=== PATIENT | female | born 1950 | race American Indian/Alaskan Native ===

== ENCOUNTER 2017-08-29 10:41 | Inpatient (IN) | payer MEDICARE, OTHER ==
[2017-08-29 10:47] VITALS: BMI 22.7
--- NOTE | 2017-08-29 10:53 | ED PDOC ---
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 posterior back pain x 1 week with no recent traveling. Pt. stated that she has been coughing for the past 10 days, admits fatigue with vomiting after each coughing episode, unable to keep any fluid or solid down, stated that she feels chills but no objective fever, no night sweat, no numbness or tingling, no rash, no other medical or psychological complaints. Past Medical History - Provider Review Nursing Documentation Reviewed: Yes - Cardiac Hx Cardiac Disorders: Yes ([place] 2009) - Neurological HX Cerebrovascular Accident: Yes (1998) - Hematological/Oncological Hx Blood Transfusions: No Hx Blood Transfusion Reaction: No - Musculoskeletal/Rheumatological Hx Falls: No - Gastrointestinal Hx Gastrointestinal Disorders: Yes HX Swallowing Problems: Yes - Psychiatric Hx Substance Use: No - Surgical History Hx Cardiac Catheterization: Yes (2009) - Anesthesia Hx Anesthesia Reactions: Yes (?CARDIACVS RESP ARREST POST LAST EGD) Hx Malignant Hyperthermia: No - Suicidal Assessment Feels Threatened In Home Enviroment: No Family/Social History - Physician Review Nursing Documentation Reviewed: Yes Family/Social History: Unknown Family HX Smoking Status: Never Smoked Hx Alcohol Use: No Hx Substance Use: No Allergies/Home Meds Allergies/Adverse Reactions: Allergies No Known Allergies Allergy (Verified 08/29/17 10:47) Home Medications: Home Meds Medication Instructions Recorded Confirmed Cyanocobalamin [Vitamin B12 100 100 mcg PO DAILY 05/23/15 05/23/15 mcg Tab] Esomeprazole Magnesium [Nexium] 40 mg PO QAM 05/23/15 05/24/15 Folic Acid 1 mg PO DAILY 05/23/15 05/23/15 Valsartan/Hydrochlorothiazide 1 tab PO QAM 05/23/15 05/24/15 [Valsartan and Hydrochlorothiazide 12.5 mg-80 ] Review of Systems - Review of Systems Constitutional: Fatigue, Fevers Eyes: absent: Vision Changes ENT: absent: Hearing Changes Respiratory: Cough, Sputum. absent: SOB, Wheezing Cardiovascular: absent: Chest Pain Gastrointestinal: Nausea, Vomiting. absent: Abdominal Pain, Diarrhea Musculoskeletal: absent: Arthralgias, Back Pain Skin: absent: Rash, Pruritis Neurological: absent: Headache, Dizziness Psychiatric: absent: Anxiety, Depression, Suicidal Ideation Physical Exam Vital Signs Reviewed: Yes Vital Signs Temp Pulse Resp BP Pulse Ox 08/29/17 10:51 98.7 F 124 H 19 152/93 H 94 L 08/29/17 10:47 98.7 F 124 H 19 152/93 H 94 L Temperature: Afebrile Blood Pressure: Hypertensive Pulse: Tachycardic Respiratory Rate: Normal Appearance: Positive for: Well-Appearing, Non-Toxic, Comfortable Pain Distress: None Mental Status: Positive for: Alert and Oriented X 3 - Systems Exam Head: Present: Atraumatic, Normocephalic. No: Tenderness, Contusion, Swelling Pupils: Present: PERRL Extroacular Muscles: Present: EOMI Conjunctiva: Present: Normal Mouth: Present: Moist Mucous Membranes Pharnyx: No: ERYTHEMA, EXUDATE, TONSILS ENLARGED Nose (External): Present: Atraumatic. No: Abrasion, Contusion, Laceration Nose (Internal): Present: Normal Inspection, No Active Bleeding. No: Rhinorrhea , Septal Hematoma, Epistaxis Neck: Present: Normal Range of Motion, Trachea Midline. No: Meningeal Signs, MIDLINE TENDERNESS, Lymphadenopathy Respiratory/Chest: Present: Clear to Auscultation, Good Air Exchange, Rales (+ crackle/rale on the lower lobes). No: Respiratory Distress, Accessory Muscle Use, Wheezes, Decreased Breath Sounds, Retracting, Rhonchi, Tachypneic, Tender to Palpation Cardiovascular: Present: Regular Rate and Rhythm, Normal S1, S2. No: Murmurs Abdomen: No: Tenderness, Distention, Peritoneal Signs, Rebound, Guarding Back: Present: Normal Inspection Upper Extremity: Present: Normal Inspection. No: Cyanosis, Edema Lower Extremity: Present: Normal Inspection, NORMAL PULSES, Normal ROM, Capillary Refill < 2 s. No: Edema, Deformity Neurological: Present: GCS=15, CN II-XII Intact, Speech Normal, Motor Func Grossly Intact, Memory Normal Skin: Present: Warm, Dry, Normal Color. No: Rashes Psychiatric: Present: Alert, Oriented x 3, Normal Insight, Normal Concentration Medical Decision Making ED Course and Treatment: 08/29/17 11:01 Differential: Pneumonia vs. Pulmonary Embolus vs. Sepsis vs. dehydration -labs/dimer/vbg/blood cultures/ua -chest xray -ekg -IVF/protonix/zofran/solumedrol/duoneb -Oxygen 2L nasal cannula -Observe and reassess 08/29/17 11:21 -Lactic acid 2.2, tachycardic 120s, wbc is 12.0, code sepsis activated with IV rocephine and azithromycin ordered. 08/29/17 12:06 -Dimer 448, CTA added, afebrile with tachycardia, need to r/o PE 08/29/17 13:15 -EKG: Sinus Tachycardia @ 108 BPM with RBBB, no ST elevation or depression, T wave inversion on the lead V3, no previous ekg available for comparison -Chest xray: Minor right basilar atelectasis and or scarring. Significant dilatation of the esophagus again noted -Thoracic spine xray: No acute fractures however minor chronic anterior stature loss of several upper thoracic segments. Mild levoscoliosis. Mild multilevel degenerative spondylosis -CTA chest: No evidence of pulmonary embolus. Markedly dilated air-filled esophagus with layering food debris and liquid. Localized wall thickening of the distal esophagus. Rule out esophageal carcinoma. There appear to be some chronic scarring changes in the right upper and lower lobes with small nodular densities associated with 2 upper lobe foci. Followup the CT scan in 6 months recommended to assess stability. Small low-attenuation focus seen in the right lobe thyroid gland of uncertain etiology. Followup thyroid ultrasound recommended. See above discussion for additional details and findings -Labs show wbc 12.0 (IV rocephine and azithromycin with fluid ordered), BNP within normal limit, Dimer 448 (CTA added) -Lactic acid 2.2 -UA ordered and pending result. -I discussed the CTA chest result with the patient and suggest repeat chest after 6 months as per radiologist recommendation, there is ground grass patach opacity noted, clinically concerning and appears to be pneumonia. -Pt. will need admission for IV antibiotic as she is PO intolerance and sepsis. 08/29/17 13:19 -I spoke to Dr. Paiz about the case/labs/radiology result, agreed to admit to her service. -I spoke to Dr. Garcia about the case and he will put in the admission. Reassessment Condition: Re-examined - Critical Care Critical Care Minutes: 30 minutes Critical Care Time: Unstable Narrative Critical Care (Text): 08/29/17 11:23 Sepsis, tachycardia and hypoxic 94%, IVF and IV antibiotics. - Lab Interpretations Lab Results: 08/29/17 11:00 08/29/17 11:00 Lab Results 08/29/17 11:00: D-Dimer, Quantitative 448 H 08/29/17 11:00: WBC 12.0 H D, RBC 4.80, Hgb 13.3, Hct 40.6, MCV 84.6, MCH 27.7, MCHC 32.8, RDW 15.8 H, Plt Count 451 H, MPV 10.2, Gran % 76.2 H, Lymph % (Auto) 13.5 L, Will % (Auto) 9.8 H, Eos % (Auto) 0.3 L, Baso % (Auto) 0.2, Gran # 9.17 H, Lymph # (Auto) 1.6, Will # (Auto) 1.2 H, Eos # (Auto) 0.0, Baso # (Auto) 0.02 08/29/17 11:00: Sodium 142, Chloride 101, Potassium 3.8, Carbon Dioxide 24, Anion Gap 21 H, BUN 20, Creatinine 0.7, Est GFR ( Amer) > 60, Est GFR ( Non-Af Amer) > 60, Random Glucose 193 H, Calcium 10.0, Magnesium 1.8, Total Bilirubin 1.0, AST 22, ALT 22, Alkaline Phosphatase 158 H, NT-Pro-B Natriuret Pep 208, Total Protein 8.2, Albumin 4.2, Globulin 4.0, Albumin/Globulin Ratio 1.0 L, Lipase 92 08/29/17 11:00: pO2 117 H, VBG pH 7.44 H, VBG pCO2 40.0, VBG HCO3 27.2, VBG Total CO2 28.4 H, VBG O2 Sat (Calc) 99.5 H, VBG Base Excess 2.8 H, VBG Potassium 3.7, Sodium 140.0, Chloride 103.0, Glucose 209 H, Lactate 2.2 H, FiO2 21.0, Venous Blood Potassium 3.7 I have reviewed the lab results: Yes Interpretation: Abnormal lab values - RAD Interpretation Radiology Orders: 08/29/17 10:54 CHEST ONE VIEW [RAD] Stat 08/29/17 10:55 DORSAL (THORACIC) SPINE [RAD] Stat 08/29/17 11:57 ANGIO CHEST PE PROTOCOL [CT] Stat Chest xray: PROCEDURE: CHEST RADIOGRAPH, 1 VIEW HISTORY: Cough fever and fatigue. COMPARISON: Correlation with concurrent CTA chest and prior CT scan of the chest 05/28/2015 FINDINGS: Significant dilatation of the esophagus again noted which is most conspicuous in the upper mediastinum. Clinical correlation recommended. LUNGS: Minor right basilar atelectasis or scarring. PLEURA: No pneumothorax or pleural fluid seen. CARDIOVASCULAR: Heart size normal. OSSEOUS STRUCTURES: No significant abnormalities. VISUALIZED UPPER ABDOMEN: Normal. OTHER FINDINGS: None. IMPRESSION: Minor right basilar atelectasis and or scarring. Significant dilatation of the esophagus again noted -- Dorsal spine xray: Mid back pain COMPARISON: Correlation made with concurrent CTA chest which image the thoracic spine and 3 planes. FINDINGS: BONES: No acute compression fractures no retropulsed fragments. Chronic appearing anterior stature loss of several upper thoracic segments. There is mild of levoscoliosis. DISC SPACES: Mild multilevel degenerative spondylosis with varying degrees of disc space narrowing, endplate eburnation and small anterolateral as well as tiny posterior osteophyte formation. SOFT TISSUES: Normal. OTHER FINDINGS: None. IMPRESSION: No acute fractures however minor chronic anterior stature loss of several upper thoracic segments. Mild levoscoliosis. Mild multilevel degenerative spondylosis CTA Chest: PROCEDURE: CT Chest with contrast (Pulmonary Angiogram) HISTORY: Tachycardia,elevated dimer, cough ; rule out PE COMPARISON: Comparison made with CT chest 05/28/2015 TECHNIQUE: Contiguous helical/transaxial computed tomography images were obtained of the chest in the pulmonary arterial phase of enhancement. Coronal and sagittal reformatted images were created and reviewed. Intravenous contrast dose: 100 cc Omnipaque 350 Radiation dose: Total exam DLP = 266.04 mGy-cm. This CT exam was performed using one or more of the following dose reduction techniques: Automated exposure control, adjustment of the mA and/or kV according to patient size, and/or use of iterative reconstruction technique. FINDINGS: PULMONARY ARTERIES: The visualized pulmonary trunk, right and left main, lobar, segmental and proximal subsegmental branches of the pulmonary arteries are opacified with no definitive filling defects seen to suggest acute central pulmonary embolus. Pulmonary trunk measures approximately 2.3 cm AORTA: No acute findings. No thoracic aortic aneurysm. The at ascending thoracic aorta measures approximately 3.3 cm and descending thoracic aorta measures approximately 2.4 cm. LUNGS: There appears to be some localized atelectasis/ bronchiectasis in the superior segment right lower lobe. There are at 2 focal areas of patchy of patchy ground- glass opacities in the right upper lobe which probably represent chronic scarring changes ; the more anteriorly located focus present on the prior study. However note is made of an associated small approximately 3.9 mm elliptical shaped somewhat translucent appearing nodular opacity seen along the peripheral margin of this opacity (see axial series 4, image number 50). Similar similar translucent nodular opacity measuring 5.5 mm seen in the most posteriorly located focus. Findings may be postinflammatory sequela however follow-up CT scan in 6 months to assess the aforementioned 2 small nodular densities for stability PLEURAL SPACES: Unremarkable. No effusion or pneumothorax. HEART: Unremarkable. No cardiomegaly. No significant pericardial effusion. LYMPH NODES: No significant lymphadenopathy. BONES, CHEST WALL: Marked dilatation of the entire esophagus with layering food debris and liquid of likely due to chronic reflux. . Apparent small hiatal hernia with mild wall thickening of the distal esophagus that could be due to esophagitis however endoscopy followup recommended to exclude other intrinsic/invasive wall lesion including esophageal carcinoma. Note again made of deformity at of the right 6th rib with what appears represent some bridging with the 5th rib. Rule out old posttraumatic sequela versus is congenital/developmental abnormality. . Minor chronic anterior stature loss of few upper/ mid thoracic segments. There are no acute compression fractures. There is mild levoscoliosis. Small space curvilinear calcification along the posterior cyst T6-T7 disc space could represent calcification of the posterior longitudinal ligament or calcification of the posterior annulus results in mild compressive effects on the ventral surface of the thecal sac and spinal cord. Note again made of OTHER FINDINGS: There is a somewhat rounded/elliptical shaped low-attenuation focus posterior cortex upper/ midpole left kidney consistent with cyst that measures approximately 2.1 cm in greatest dimension. Small approximately 4.8 mm rounded low-attenuation focus right lobe thyroid gland of uncertain etiology. Recommend followup thyroid ultrasound. IMPRESSION: No evidence of pulmonary embolus. Markedly dilated air-filled esophagus with layering food debris and liquid. Localized wall thickening of the distal esophagus. Rule out esophageal carcinoma. There appear to be some chronic scarring changes in the right upper and lower lobes with small nodular densities associated with 2 upper lobe foci. Followup the CT scan in 6 months recommended to assess stability. Small low-attenuation focus seen in the right lobe thyroid gland of uncertain etiology. Followup thyroid ultrasound recommended. 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 - Medication Orders Current Medication Orders: Sodium Chloride (Sodium Chloride 0.9%) 1,000 mls @ 1,000 mls/hr IV .Q1H KAREN Last Admin: 08/29/17 12:28 Dose: 1,000 mls/hr eMAR Start Stop Document 08/29/17 12:28 OCS (Rec: 08/29/17 12:28 OCS [id number]) Intravenous Solution Start Date 08/29/17 Start Time 12:28 End Date 08/29/17 End time 13:28 Total Infusion Time 60 Discontinued Medications Albuterol/Ipratropium (Duoneb 3 Mg/0.5 Mg (3 Ml) Ud) 3 ml IH STAT STA Stop: 08/29/17 11:31 Last Admin: 08/29/17 12:26 Dose: 3 ml Albuterol/Ipratropium (Duoneb 3 Mg/0.5 Mg (3 Ml) Ud) 3 ml IH STAT STA Stop: 08/29/17 11:32 Last Admin: 08/29/17 12:27 Dose: 3 ml Sodium Chloride (Sodium Chloride 0.9%) 1,000 mls @ 100 mls/hr IV .Q10H KAREN Last Admin: 08/29/17 11:30 Dose: 100 mls/hr eMAR Start Stop Document 08/29/17 11:30 OCS (Rec: 08/29/17 11:30 OCS [id number]) Intravenous Solution Start Date 08/29/17 Start Time 11:30 Ceftriaxone Sodium (Rocephin 1 Gram Ivpb) 1 gm in 100 mls @ 200 mls/hr IVPB STAT STA PRN Reason: Protocol Stop: 08/29/17 11:47 Last Admin: 08/29/17 11:30 Dose: 200 mls/hr eMAR Start Stop Document 08/29/17 11:30 OCS (Rec: 08/29/17 11:31 OCS [id number]) Intravenous Solution Start Date 08/29/17 Start Time 11:31 End Date 08/29/17 End time 12:01 Total Infusion Time 30 Azithromycin (Zithromax 500mg In Ns) 500 mg in 250 mls @ 167 mls/hr IVPB STAT STA PRN Reason: Protocol Stop: 08/29/17 12:47 Last Admin: 08/29/17 12:27 Dose: 167 mls/hr eMAR Start Stop Document 08/29/17 12:27 OCS (Rec: 08/29/17 12:28 OCS [id number]) Intravenous Solution Start Date 08/29/17 Start Time 12:27 End Date 08/29/17 End time 13:57 Total Infusion Time 90 Methylprednisolone (Solu-Medrol) 125 mg IVP STAT STA Stop: 08/29/17 11:32 Last Admin: 08/29/17 12:26 Dose: 125 mg IVP Administration Document 08/29/17 12:26 OCS (Rec: 08/29/17 12:26 OCS [id number]) Charges for Administration # of IVP Administrations 1 Ondansetron HCl (Zofran Inj) 4 mg IVP STAT STA Stop: 08/29/17 10:55 Last Admin: 08/29/17 11:31 Dose: 4 mg IVP Administration Document 08/29/17 11:31 OCS (Rec: 08/29/17 11:31 OCS [id number]) Charges for Administration # of IVP Administrations 1 Pantoprazole Sodium (Protonix Inj) 40 mg IVP STAT STA Stop: 08/29/17 10:55 Last Admin: 08/29/17 11:31 Dose: 40 mg IVP Administration Document 08/29/17 11:31 OCS (Rec: 08/29/17 11:31 OCS [id number]) Charges for Administration # of IVP Administrations 1 - PA / NUTRITION SERVICES ASSISTANT / Resident Statement / has reviewed & agrees with the documentation as recorded. Disposition/Present on Arrival - Present on Arrival Any Indicators Present on Arrival: Yes History of DVT/PE: No History of Uncontrolled Diabetes: No Urinary Catheter: No History of Decub. Ulcer: No History Surgical Site Infection Following: None - Disposition Have Diagnosis and Disposition been Completed?: Yes Diagnosis: Sepsis, Pneumonia Disposition: HOSPITALIZED Disposition Time: 11:25 Patient Plan: Admission, Telemetry Patient Problems: Current Active Problems Problem Status Onset Pneumonia Acute Sepsis Acute Condition: STABLE Discharge Instructions (ExitCare): Sepsis (ED) Referrals: Evonne Banks DO [Primary Care Provider] - Follow up with primary
[2017-08-29] MEDS ORDERED: Sodium Chloride 0.9% 1,000 ML IV SCH ×2 (11:00→11:45)
[2017-08-29 11:12] LABS: VENOUS BLOOD GAS BASE EXCESS 2.8 mmol/L (0.0-2.0); VENOUS BLOOD GAS PO2 117 mm/Hg (30-55); VENOUS BLOOD PH 7.44 (7.32-7.43)
[2017-08-29 11:14] LABS: BASO # 0.02 K/mm3 (0.0-2.0); BASO % 0.2 % (0.0-3.0); EOS % 0.3 % (1.5-5.0); GRAN # 9.17 (1.4-6.5); GRAN % 76.2 % (50.0-68.0); HEMOGLOBIN 13.3 g/dL (12.0-16.0); LYMPH # 1.6 (1.2-3.4); LYMPH % 13.5 % (22.0-35.0); MEAN CELL VOLUME 84.6 fl (80.0-105.0); MEAN CORPUSCULAR HEMOGLOBIN 27.7 pg (25.0-35.0); MEAN CORPUSCULAR HGB CONC 32.8 g/dl (31.0-37.0); MEAN PLATELET VOLUME 10.2 fl (7.0-11.0); MONO # 1.2 (0.1-0.6); MONO % 9.8 % (1.0-6.0); RBC 4.8 10^6/uL (3.5-6.1); RED CELL DISTRIBUTION WIDTH 15.8 % (11.5-14.5)
[2017-08-29] MEDS ORDERED: Azithromycin 500MG/NS 250ml 500 MG/250 ML BAG IVPB STA (11:18)
[2017-08-29] MEDS ORDERED: cefTRIAXone 1 gm 1 GM/100 ML BAG IVPB STA (11:18)
[2017-08-29 11:27] LABS: ALBUMIN 4.2 g/dL (3.0-4.8); GFR AFRICAN-AMERICAN > 60; GFR NON-AFRICAN AMERICAN > 60; LIPASE 92 U/L (23-300)
[2017-08-29] MEDS ORDERED: Albuterol-Ipratrop 3 mg / 0.5 (3 ml) UD IH STA ×2 (11:30→11:31)
[2017-08-29 11:34] LABS: ALT/SGPT 22 U/L (7-56); AST/SGOT 22 U/L (14-36); BLOOD UREA NITROGEN 20 mg/dL (7-21)
[2017-08-29 11:35] LABS: B-TYPE NATRIURETIC PEPTIDE 208 pg/mL (0-450)
[2017-08-29] MEDS ORDERED: Iohexol 350 MG/100 ML VIAL ONE (12:03)
--- NOTE | 2017-08-29 12:24 | RAD ---
PROCEDURE: CHEST RADIOGRAPH, 1 VIEW HISTORY: Cough fever and fatigue. COMPARISON: Correlation with concurrent CTA chest and prior CT scan of the chest 05/28/2015 FINDINGS: Significant dilatation of the esophagus again noted which is most conspicuous in the upper mediastinum. Clinical correlation recommended. LUNGS: Minor right basilar atelectasis or scarring. PLEURA: No pneumothorax or pleural fluid seen. CARDIOVASCULAR: Heart size normal. OSSEOUS STRUCTURES: No significant abnormalities. VISUALIZED UPPER ABDOMEN: Normal. OTHER FINDINGS: None. IMPRESSION: Minor right basilar atelectasis and or scarring. Significant dilatation of the esophagus again noted
--- NOTE | 2017-08-29 12:27 | RAD ---
HISTORY: Mid back pain COMPARISON: Correlation made with concurrent CTA chest which image the thoracic spine and 3 planes. FINDINGS: BONES: No acute compression fractures no retropulsed fragments. Chronic appearing anterior stature loss of several upper thoracic segments. There is mild of levoscoliosis. DISC SPACES: Mild multilevel degenerative spondylosis with varying degrees of disc space narrowing, endplate eburnation and small anterolateral as well as tiny posterior osteophyte formation. SOFT TISSUES: Normal. OTHER FINDINGS: None. IMPRESSION: No acute fractures however minor chronic anterior stature loss of several upper thoracic segments. Mild levoscoliosis. Mild multilevel degenerative spondylosis
--- NOTE | 2017-08-29 13:11 | CT ---
PROCEDURE: CT Chest with contrast (Pulmonary Angiogram) HISTORY: Tachycardia,elevated dimer, cough ; rule out PE COMPARISON: Comparison made with CT chest 05/28/2015 TECHNIQUE: Contiguous helical/transaxial computed tomography images were obtained of the chest in the pulmonary arterial phase of enhancement. Coronal and sagittal reformatted images were created and reviewed. Intravenous contrast dose: 100 cc Omnipaque 350 Radiation dose: Total exam DLP = 266.04 mGy-cm. This CT exam was performed using one or more of the following dose reduction techniques: Automated exposure control, adjustment of the mA and/or kV according to patient size, and/or use of iterative reconstruction technique. FINDINGS: PULMONARY ARTERIES: The visualized pulmonary trunk, right and left main, lobar, segmental and proximal subsegmental branches of the pulmonary arteries are opacified with no definitive filling defects seen to suggest acute central pulmonary embolus. Pulmonary trunk measures approximately 2.3 cm AORTA: No acute findings. No thoracic aortic aneurysm. The at ascending thoracic aorta measures approximately 3.3 cm and descending thoracic aorta measures approximately 2.4 cm. LUNGS: There appears to be some localized atelectasis/ bronchiectasis in the superior segment right lower lobe. There are at 2 focal areas of patchy of patchy ground-glass opacities in the right upper lobe which probably represent chronic scarring changes ; the more anteriorly located focus present on the prior study. However note is made of an associated small approximately 3.9 mm elliptical shaped somewhat translucent appearing nodular opacity seen along the peripheral margin of this opacity (see axial series 4, image number 50). Similar similar translucent nodular opacity measuring 5.5 mm seen in the most posteriorly located focus. Findings may be postinflammatory sequela however follow-up CT scan in 6 months to assess the aforementioned 2 small nodular densities for stability PLEURAL SPACES: Unremarkable. No effusion or pneumothorax. HEART: Unremarkable. No cardiomegaly. No significant pericardial effusion. LYMPH NODES: No significant lymphadenopathy. BONES, CHEST WALL: Marked dilatation of the entire esophagus with layering food debris and liquid of likely due to chronic reflux. . Apparent small hiatal hernia with mild wall thickening of the distal esophagus that could be due to esophagitis however endoscopy followup recommended to exclude other intrinsic/invasive wall lesion including esophageal carcinoma. Note again made of deformity at of the right 6th rib with what appears represent some bridging with the 5th rib. Rule out old posttraumatic sequela versus is congenital/developmental abnormality. . Minor chronic anterior stature loss of few upper/ mid thoracic segments. There are no acute compression fractures. There is mild levoscoliosis. Small space curvilinear calcification along the posterior cyst T6-T7 disc space could represent calcification of the posterior longitudinal ligament or calcification of the posterior annulus results in mild compressive effects on the ventral surface of the thecal sac and spinal cord. Note again made of OTHER FINDINGS: There is a somewhat rounded/elliptical shaped low-attenuation focus posterior cortex upper/ midpole left kidney consistent with cyst that measures approximately 2.1 cm in greatest dimension. Small approximately 4.8 mm rounded low-attenuation focus right lobe thyroid gland of uncertain etiology. Recommend followup thyroid ultrasound. IMPRESSION: No evidence of pulmonary embolus. Markedly dilated air-filled esophagus with layering food debris and liquid. Localized wall thickening of the distal esophagus. Rule out esophageal carcinoma. There appear to be some chronic scarring changes in the right upper and lower lobes with small nodular densities associated with 2 upper lobe foci. Followup the CT scan in 6 months recommended to assess stability. Small low-attenuation focus seen in the right lobe thyroid gland of uncertain etiology. Followup thyroid ultrasound recommended. See above discussion for additional details and findings
[2017-08-29] MEDS ORDERED: Albuterol-Ipratrop 3 mg / 0.5 (3 ml) UD IH PRN (14:13)
[2017-08-29] MEDS: Dextrose 5%/0.45% NS 1,000 ML IV SCH (15:14)
[2017-08-29 15:58] LABS: VENOUS BLOOD GAS BASE EXCESS 3.2 mmol/L (0.0-2.0); VENOUS BLOOD GAS PO2 72 mm/Hg (30-55); VENOUS BLOOD PH 7.43 (7.32-7.43)
--- NOTE | 2017-08-29 16:57 | CARD ---
APPROVED REPORT EKG Measurement Heart [id number] <Conclusion> Sinus tachycardia Right bundle branch block Left anterior fascicular block Bifascicular block Voltage criteria for left ventricular hypertrophy Cannot rule out Septal infarct, age undetermined Abnormal ECG
[2017-08-29 18:43] LABS: URINE BILIRUBIN NEGATIVE (NEGATIVE); URINE BLOOD TRACE-LYSED (NEGATIVE); URINE GLUCOSE (UA) 100 mg/dL (NEGATIVE); URINE LEUKOCYTE ESTERASE NEGATIVE Leu/uL (NEGATIVE); URINE PROTEIN 30 mg/dL (<30 mg/dL)
[2017-08-29 18:50] LABS: URINE APPEARANCE SL CLOUDY (CLEAR); URINE COLOR YELLOW (YELLOW)
[2017-08-29] MEDS: Albuterol-Ipratrop 3 mg / 0.5 (3 ml) UD IH SCH ×2 (18:51→19:13)
[2017-08-29 19:08] LABS: URINE RBC 0 - 2 /hpf (0-2); URINE WBC 0 - 2 /hpf (0-6)
[2017-08-29] MEDS ORDERED: Pneumococcal 23-Valent Vaccine IM ONE (21:25)
[2017-08-29] MEDS ORDERED: Cefepime 1gm in NS 100ml 1 GM/100 ML BAG IVPB SCH (22:00)
--- NOTE | 2017-08-29 23:56 | HP ---
HISTORY OF PRESENT ILLNESS: The patient is a 66-year-old, known to me from previous admission, came to emergency room because of generalized weakness, feeling weak, tired, nauseous, unable to hold food, has been having some cough and congestion, felt feverish at home, has generalized weakness, complaining of upper back pain, complained of intermittent vomiting. Denies any weakness and numbness. PAST MEDICAL HISTORY: Significant for: 1. Esophageal cancer. 2. History of NE in 2009. 3. History of CVA in 1998. 4. 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 she was initially diagnosed with achalasia at [facility]. 5. History of hypertension. 6. Motility disorder. ALLERGY: SHE IS NOT ALLERGIC TO ANY MEDICATIONS. MEDICATION AT HOME: She is on valsartan 80 mg daily, folic acid 1 mg daily, Nexium 40 mg daily and B12. SOCIAL HISTORY: Denies smoking, drinking or alcohol use. REVIEW OF SYSTEMS: Significant for discomfort, cough, congestion. PHYSICAL EXAMINATION: GENERAL: She is awake, alert, oriented, communicative. VITAL SIGNS: She is afebrile. Pulse 111, respirations 20, blood pressure 142/95. LUNGS: Bilateral fair airflow, few occasional rhonchi. HEART: S1 and S2 audible. ABDOMEN: Soft. Nontender. No rebound. No guarding. NEUROLOGICAL: The patient is awake, alert, oriented, and communicative. LABORATORY EXAM: WBC is 12, hemoglobin 13.3, hematocrit 40.6, platelets of 451. D-dimer 448. Chemistry: Sodium 142, potassium 3.8, chloride 101, CO2 24, BUN 20, creatinine 0.7, blood sugar of 193. LFTs are within normal limits. Alk phos is 158. CT scan of the chest was done that shows no evidence of pulmonary embolism, markedly dilated, air filled esophagus with lining of food debris and liquid, localized thickening of the distal esophagus. There are small nodular opacities in the upper and lower lobes. ASSESSMENT: 1. Esophageal cancer, probably aspiration pneumonia. 2. Hypertension. 3. Hyperglycemia. 4. Leukocytosis. PLAN: We will start the patient empirically on IV antibiotics. Start on nebulizer treatment. Keep her n.p.o. Give her PPI. Requested GI evaluation and ID evaluation. Marla Paiz MD [facility] # [id number]
[2017-08-30] MEDS: Albuterol-Ipratrop 3 mg / 0.5 (3 ml) UD IH SCH ×4 (01:36→19:15)
[2017-08-30 06:48] LABS: BASO # 0.01 K/mm3 (0.0-2.0); BASO % 0.1 % (0.0-3.0); GRAN # 8.13 (1.4-6.5); GRAN % 71.7 % (50.0-68.0); HEMOGLOBIN 11.4 g/dL (12.0-16.0); LYMPH # 1.8 (1.2-3.4); LYMPH % 15.4 % (22.0-35.0); MEAN CELL VOLUME 84.5 fl (80.0-105.0); MEAN CORPUSCULAR HEMOGLOBIN 26.8 pg (25.0-35.0); MEAN CORPUSCULAR HGB CONC 31.8 g/dl (31.0-37.0); MONO # 1.5 (0.1-0.6); MONO % 12.8 % (1.0-6.0); RBC 4.25 10^6/uL (3.5-6.1); RED CELL DISTRIBUTION WIDTH 15.8 % (11.5-14.5); WHITE BLOOD COUNT 11.3 10^3/ul (4.5-11.0)
[2017-08-30 07:17] LABS: FREE T4 1.59 ng/dL (0.78-2.19)
[2017-08-30 07:33] LABS: ALBUMIN 3.7 g/dL (3.0-4.8); ALT/SGPT 11 U/L (7-56); AST/SGOT 28 U/L (14-36); BLOOD UREA NITROGEN 14 mg/dL (7-21); CALCIUM 9.2 mg/dL (8.4-10.5); GFR AFRICAN-AMERICAN > 60; GFR NON-AFRICAN AMERICAN > 60
[2017-08-30] MEDS ORDERED: Potassium Chloride 20 mEq ER Tab PO ONE (10:31)
[2017-08-30] MEDS: MethylPREDNISolone 40 mg Vial IVP SCH (10:46)
[2017-08-30] MEDS: Dextrose 5%/0.45% NS 1,000 ML IV SCH ×2 (15:33→21:00)
[2017-08-30] MEDS: Cefepime 1gm in NS 100ml 1 GM/100 ML BAG IVPB SCH ×2 (15:33→22:30)
[2017-08-30] MEDS: Budesonide 0.5 mg/2 ml Inhal Susp UD IH SCH (19:15)
--- NOTE | 2017-08-30 20:17 | CON ---
DATE: 08/30/2017 LOCATION: Patient is seen in [facility], bed 2. CHIEF COMPLAINT: Cough times several days and shortness of breath times several days. HISTORY OF PRESENT ILLNESS: This is a 66-year-old female with a history of esophageal cancer, history of coronary artery disease, myocardial infarction in 2009, history of cerebrovascular accident in 1998, and hypertension, who was seen in the emergency room by Dr. Raimundo Garcia, on 08/29/2017, which was yesterday. Patient went to the emergency room complaining of coughing and fever and fatigue and stays in the emergency room. The patient also has esophageal stricture with esophageal malignancy and vitamin D deficiency. REVIEW OF SYSTEMS: Reveals no abdominal pain at this time, no chest pain. The patient did have complained of fevers and no headaches, no new back pain, no dysuria or frequency. Twelve-point review of systems is performed. PAST MEDICAL HISTORY: Significant for esophageal stricture, esophageal cancer, coronary artery disease, myocardial infarction in 2009, cerebrovascular accident in 1997, hypertension, and vitamin B deficiency. PAST SURGICAL HISTORY: Noncontributory except for a cardiac catheterization in 2009. Patient has also had chemotherapy and radiation in 2015. ALLERGIES: PATIENT HAS NO KNOWN ALLERGIES. MEDICATIONS: At home are reviewed and include valsartan and hydrochlorothiazide, folic acid, vitamin B12, and Protonix. PHYSICAL EXAMINATION: GENERAL: Patient is in bed, in no acute distress, answering questions. VITAL SIGNS: With a temperature of 98.7; heart rate of 99, it was up to 124; respiratory rate of 20; blood pressure is 138/90. Examination of the O2 saturation is 100%. HEENT: Unremarkable. NECK: Supple. LUNGS: Have decreased breath sounds. HEART: Normal S1, S2. ABDOMEN: Soft, nontender. No rebound, no guarding. LABORATORY EXAMINATION: Reveals a white count of 12,000, hemoglobin of 13, platelets of 451. Patient has a 76% granulocytosis. Coagulation is noted. D-dimer is elevated. Blood gases are noted. Chemistries reveal the patient has BUN of 20, creatinine of 0.7, alk phos is 158. Urinalysis is noted. Microbiology is pending. Patient had a CAT scan of the chest, which revealed bronchiectasis and patchy ground-glass opacities. Patient had a chest x-ray, showed atelectasis and scarring. ASSESSMENT AND PLAN: This is a 66-year-old female with esophageal cancer, had chemotherapy in the past, radiation, esophageal strictures, coronary artery disease, myocardial infarction, cerebrovascular accident, hypertension, vitamin B deficiency; admitted with tachycardia, cough, shortness of breath, and leukocytosis with white count of 12,000 with positive infiltrates in a CAT scan: 1. Sepsis with healthcare-associated pneumonia. Blood cultures, urine cultures, sputum cultures are pending. We will order a procalcitonin. Patient is started on cefepime and doxycycline. We will start the patient on doxycycline and cefepime pending panculture and procalcitonin results and we will make further recommendations upon the availability of initial results. Patient's creatinine is 0.7. We will change the cefepime to every 8 hour dosing. We will follow closely with you. Pending culture, procalcitonin. Dalton Menjivar MD
--- NOTE | 2017-08-30 22:12 | CP.PCM.PN ---
Subjective - Date & Time of Evaluation Date of Evaluation: 08/30/17 Time of Evaluation: 20:35 - Subjective Subjective: Pt has very poor veins ,needs iv access. Objective - Vital Signs/Intake and Output Vital Signs (last 24 hours): Temp Pulse Resp BP Pulse Ox 98.2 F 116 H 20 157/93 H 98 08/30/17 18:00 08/30/17 18:00 08/30/17 18:00 08/30/17 18:00 08/30/17 18:00 - Medications Medications: Current Medications Acetaminophen (Tylenol 325mg Tab) 650 mg PO Q6H PRN PRN Reason: Fever >100.4 F Albuterol/Ipratropium (Duoneb 3 Mg/0.5 Mg (3 Ml) Ud) 3 ml IH Q2H PRN PRN Reason: Shortness of Breath Last Admin: 08/30/17 09:42 Dose: 3 ml Albuterol/Ipratropium (Duoneb 3 Mg/0.5 Mg (3 Ml) Ud) 3 ml IH [id number] KAREN Last Admin: 08/30/17 19:15 Dose: 3 ml Budesonide (Pulmicort Respules) 0.5 mg IH BIDRESP KAREN Last Admin: 08/30/17 19:15 Dose: 0.5 mg Dextrose/Sodium Chloride (Dextrose 5%/0.45% Ns 1000 Ml) 1,000 mls @ 100 mls/hr IV .Q10H [facility] Last Admin: 08/30/17 15:33 Dose: 100 mls/hr Doxycycline Hyclate 100 mg/ (Sodium Chloride) 100 mls @ 100 mls/hr IVPB Q12 KAREN PRN Reason: Protocol Stop: 09/06/17 10:01 Last Admin: 08/30/17 21:33 Dose: 100 mls/hr Cefepime HCl (Maxipime 1gm) 1 gm in 100 mls @ 100 mls/hr IVPB Q8 KAREN PRN Reason: Protocol Stop: 09/05/17 14:01 Last Admin: 08/30/17 15:33 Dose: 100 mls/hr Methylprednisolone (Solu-Medrol) 40 mg IVP DAILY [facility] Last Admin: 08/30/17 10:46 Dose: 40 mg Ondansetron HCl (Zofran Inj) 4 mg IVP Q6H PRN PRN Reason: Nausea/Vomiting Pantoprazole Sodium (Protonix Inj) 40 mg IVP DAILY [facility]EN Last Admin: 08/30/17 10:46 Dose: 40 mg - Labs Labs: 08/30/17 06:30 08/30/17 06:30 - Constitutional Appears: No Acute Distress Assessment and Plan - Assessment and Plan (Free Text) Assessment: Poor venous access. Plan: Hep lock inserted in the L hand. # 24 angiocath used.
--- NOTE | 2017-08-30 22:36 | CON ---
DATE: 08/30/2017 PULMONARY CONSULTATION HISTORY OF PRESENT ILLNESS: The patient is a 66-year-old woman who came to the hospital after feeling short of breath for several weeks. She had no fever or chills. There was an occasional cough, which she described as congestion, generalized weakness ensued. PAST MEDICAL HISTORY: The patient has a past history of esophageal cancer. She had radiation therapy and chemotherapy for squamous cell carcinoma. She also has a history of myocardial infarction and cerebrovascular accident. She has hypertension. Her esophagus remains with difficulty swallowing. ALLERGIES: THERE ARE NO KNOWN ALLERGIES. HOME MEDICATIONS: Include valsartan and Nexium. FAMILY HISTORY: CAD, HTN SOCIAL HISTORY: The patient never smoked or used alcohol. REVIEW OF SYSTEMS: Negative other than from that described above, shortness of breath and cough. All other systems negative. PHYSICAL EXAMINATION: GENERAL: The patient is sitting in bed. She states that she is short of breath, but she looks relatively comfortable. VITAL SIGNS: Stable. She is afebrile, pulse is 90, respiratory rate 18, blood pressure 140/90, oxygen sat 96% on supplemental oxygen. HEENT: Normocephalic, atraumatic. PERRLA. EOMs full. Conjunctivae pink. NECK: Supple. No JVD. No lymphadenopathy. LUNGS: Good air flow, scattered wheezes throughout both lung landa, scattered rhonchi throughout both lung landa. No rales appreciated. ABDOMEN: Soft. Bowel sounds normoactive, without mass, guarding, rebound or organomegaly. EXTREMITIES: Reveal no clubbing, cyanosis or edema. There is no Homans' sign. NEUROLOGIC: Reveals a middle aged woman, in no acute distress, with no focal findings. SKIN: Dry; intact. LABORATORY DATA: White count is 12,000, hemoglobin 13, platelet count 451,000. D-dimer was elevated at 448. Eosinophils were 0. Blood gas done yesterday, pH 7.43, on 21%, pCO2 of 40, pO2 of 117, potassium 3.2, glucose 130. EKG, sinus tach, nonspecific ST-T wave changes. CT scan shows many abnormalities, the first of which is negative for pulmonary embolism. There are several areas of possible pneumonic infiltrate. There is also evidence of bronchiectasis, mainly at the lower lobe. There is scarring throughout. There are possibility of several nodules. There is no pleural effusion. Noted by the radiologist, there is a filled esophagus which perhaps may be leading to aspiration. CLINICAL IMPRESSION: 1. Respiratory insufficiency. 2. Acute bronchospasm. 3. Rule out aspiration. 4. Hypokalemia. 5. Esophageal cancer. 6. Status post radiation therapy and chemotherapy. PLAN: At this time, bronchodilators and corticosteroids are essential. We must see if this makes the patient improved. She will need broad-spectrum antibiotic coverage. Once stabilized, a swallowing test is essential to make sure that there is no aspiration syndrome, which one needs to consider strongly. The patient has no history of bronchospasm in the past. Etiology of this needs to be discerned, aspiration is a possible cause. The patient is being cared for by Dr. Banks and Dr. Paiz in the hospital. We will follow closely with you during the course of this hospitalization and decide on the need for further intervention as the workup continues. José Samuels MD MTDD
[2017-08-31] MEDS: Albuterol-Ipratrop 3 mg / 0.5 (3 ml) UD IH SCH ×4 (01:49→20:25)
[2017-08-31] MEDS: Dextrose 5%/0.45% NS 1,000 ML IV SCH ×3 (04:05→18:01)
[2017-08-31 05:26] LABS: ARTERIAL BLOOD GAS HCO3 29.2 mmol/L (21-28); ARTERIAL BLOOD GAS HEMOGLOBIN 10.9 g/dL (11.7-17.4); ARTERIAL BLOOD GAS O2 CAPACITY 15.3 mL/dl (16-24); ARTERIAL BLOOD GAS O2 CONTENT 15.3 ML/dl (15-23); ARTERIAL BLOOD GAS O2 SAT 99.9 % (95-98); ARTERIAL BLOOD GAS PCO2 41 mm/Hg (35-45); ARTERIAL BLOOD GAS PH 7.46 (7.35-7.45); ARTERIAL BLOOD GAS TCO2 30.5 mmol.L (22-28)
[2017-08-31] MEDS: Cefepime 1gm in NS 100ml 1 GM/100 ML BAG IVPB SCH ×3 (05:28→21:31)
[2017-08-31 06:34] LABS: HEMOGLOBIN 11.1 g/dL (12.0-16.0); MEAN CELL VOLUME 84.2 fl (80.0-105.0); MEAN CORPUSCULAR HEMOGLOBIN 26.6 pg (25.0-35.0); MEAN CORPUSCULAR HGB CONC 31.5 g/dl (31.0-37.0); RBC 4.18 10^6/uL (3.5-6.1); RED CELL DISTRIBUTION WIDTH 15.6 % (11.5-14.5); WHITE BLOOD COUNT 10.7 10^3/ul (4.5-11.0)
--- NOTE | 2017-08-31 06:40 | CON ---
DATE: This patient was seen and evaluated earlier. REASON FOR CONSULTATION: Dysphagia, history of esophageal cancer. HISTORY OF PRESENT ILLNESS: This is a 66-year-old patient with the past medical history of an achalasia cardia, squamous cell carcinoma, diagnosed in 2015, had status post radiation and chemo completed close to a year ago. Patient is being followed by Dr. Michael Goldstein, reel repairer. Patient had a last endoscopy done in 11/2016. Patient is due to have a followup endoscopy in November. Patient had a followup PET scan done, which as per the patient was negative. Presented to the hospital emergency room with the complaints of weakness, vomiting, cough, congestion. Patient stated the symptoms started about 10 days ago but symptoms are progressively getting worse, came to the ER, not able to keep any food or solid down. Patient also was complaining of chills. No complaints of any abdominal pain. PAST MEDICAL HISTORY: Other past medical history is significant for; 1. Esophageal cancer. 2. Gastric polyps. 3. History of coronary artery disease, status post SC in 2009. 4. Status post CVA. 5. Hypertension. 6. Dysmotility disorder. ALLERGIES: NO KNOWN DRUG ALLERGY. SOCIAL HISTORY: Denies smoking or alcohol. REVIEW OF SYSTEMS: Positive as above. PHYSICAL EXAMINATION: GENERAL: The patient is lying on the bed, not in acute distress. VITAL SIGNS: Temperature is 98.2, pulse 116, blood pressure 157/93. HEENT: Atraumatic, anicteric. NECK: Supple. HEART: S1, S2 heard. LUNGS: Bilateral air entry present. There are few scattered rhonchi present. ABDOMEN: Soft. EXTREMITIES: No edema. No cyanosis. NEUROLOGIC: Alert, oriented, moves all the extremities. LABORATORY DATA: Patient had a CAT scan of the abdomen. Hemoglobin is 11.1, hematocrit 35.9, WBC 11.3, platelets 338, BUN 14, creatinine 0.7. Chemistry showed alkaline phosphatase 158, it has come down to 130. Potassium 3.2. IMPRESSION: 1. This is a 66-year-old patient with esophageal cancer, status post radiation chemotherapy, last esophagogastroduodenoscopy close to a year ago, negative PET scan before, now presented with progressive shortness of breath, progressive difficulty in swallowing, getting worse for the past 10 days, history of chills. Patient's CT scan showed patchy lung infiltrate and thickening of the distal esophagus and air fluid level in the esophageal area. The likely cause of esophageal dilatation could be due to the achalasia cardia where the air fluid level can occur, but however, in the setting of the squamous cell carcinoma, the recurrence of the cancer has to be ruled out in her case. Patient did however have an endoscopy and a colonoscopy; the endoscopy done before. 2. Lung infiltrate, possibility of aspiration pneumonia to be considered. Patient has been presently on antibiotics, has history of chills. 3. Hypokalemia. RECOMMENDATION: 1. Supplement the potassium. 2. Continue the antibiotics for the lung infiltrate, possible pneumonia, aspiration pneumonia. 3. Achalasia cardia. Patient is on clear liquid diet, able to tolerate it. Patient would benefit from upper GI endoscopy, which we will consider after further optimization of the patient. Patient asked me to discuss with the patient's daughter, Sonali, telephone number [phone]. We will discuss with her also. Thank you very much for allowing us to participate in the care of the patient. Sabas Amezquita MD
[2017-08-31 07:38] LABS: ALB/GLOB RATIO 0.9 (1.1-1.8); ALBUMIN 3.4 g/dL (3.0-4.8); ALT/SGPT 15 U/L (7-56); AST/SGOT 21 U/L (14-36); BLOOD UREA NITROGEN 8 mg/dL (7-21); CALCIUM 8.4 mg/dL (8.4-10.5); GFR AFRICAN-AMERICAN > 60; GFR NON-AFRICAN AMERICAN > 60
[2017-08-31] MEDS: Budesonide 0.5 mg/2 ml Inhal Susp UD IH SCH ×2 (07:44→20:28)
[2017-08-31] MEDS ORDERED: Magnesium Sulfate 1 gm in D5W 1 GM/100 ML BAG IVPB ONE (08:47)
--- NOTE | 2017-08-31 09:23 | PN ---
DATE: 08/30/2017 SUBJECTIVE: The patient was having shortness of breath; earlier, she received nebulizer treatment and that is improved. She has no headaches or dizziness. No chest pain. PHYSICAL EXAMINATION: VITAL SIGNS: Temperature . GENERAL: The patient is lying in bed, flat, comfortable. HEENT: No oral lesion. Anicteric sclerae. Moist mucosa. NECK: No JVD, adenopathy, or thyromegaly. CARDIOVASCULAR: S1 and S2, regular. No murmurs, rubs, or gallops. LUNGS: Bilateral air entry, mild wheezing. No rales or rhonchi. ABDOMEN: Bowel sounds are positive. Soft, nontender and nondistended. EXTREMITIES: No cyanosis, clubbing or edema. LABORATORY DATA: White count of 11.3, hemoglobin of 11.4, platelet count of 338. Chemistry shows sodium 140, potassium 3.2. CT of the chest done shows no evidence of PE. ASSESSMENT: 1. Esophageal cancer with possible aspiration pneumonia. 2. Hypertension. 3. Hyperglycemia. 4. Shortness of breath. PLAN: The patient is currently on IV fluids with D5 half normal saline. I will place the patient on a liquid diet. She will be given potassium replacement. She is on antibiotics of doxycycline. She is on cefepime for antibiotics as well as she is on Protonix daily. I started her on Solu-Medrol as she was having shortness of breath and wheezing. She is on Zofran. She is going to be seen by Dr. Carrion and Dr. Amezquita. We will repeat her blood work. Boris Ryan MD
[2017-08-31] MEDS: Potassium Chloride 20 mEq ER Tab PO STA ×2 (10:07→10:13)
[2017-08-31] MEDS: MethylPREDNISolone 40 mg Vial IVP SCH (10:29)
--- NOTE | 2017-08-31 12:07 | CP.PCM.PN ---
<Marly Byrne - Last Filed: 08/31/17 12:02> Subjective - Date & Time of Evaluation Date of Evaluation: 08/31/17 Time of Evaluation: 08:00 - Subjective Subjective: GI Progress Note for Anushka Macias PGY2 Patient was seen and examined at beside. There were no acute overnight events as per nursing staff. Patient reports that she has been tolerating the liquids well without any nausea/vomiting or diarrhea. She said she feels better since she has been admitted. She denies chest pain, shortness of breath, fever/chills , dysuria, hematuria, numbness or tingling. Objective - Vital Signs/Intake and Output Vital Signs (last 24 hours): Temp Pulse Resp BP Pulse Ox 98 F 94 H 20 150/90 100 08/31/17 08:33 08/31/17 08:33 08/30/17 18:00 08/31/17 08:33 08/31/17 08:33 Intake and Output: 08/31/17 08/31/17 06:59 18:59 Intake Total 2380 Output Total 1 Balance 2379 - Medications Medications: Current Medications Acetaminophen (Tylenol 325mg Tab) 650 mg PO Q6H PRN PRN Reason: Fever >100.4 F Albuterol/Ipratropium (Duoneb 3 Mg/0.5 Mg (3 Ml) Ud) 3 ml IH Q2H PRN PRN Reason: Shortness of Breath Last Admin: 08/30/17 09:42 Dose: 3 ml Albuterol/Ipratropium (Duoneb 3 Mg/0.5 Mg (3 Ml) Ud) 3 ml IH [id number] KAREN Last Admin: 08/31/17 07:44 Dose: 3 ml Budesonide (Pulmicort Respules) 0.5 mg IH BIDRESP KAREN Last Admin: 08/31/17 07:44 Dose: 0.5 mg Dextrose/Sodium Chloride (Dextrose 5%/0.45% Ns 1000 Ml) 1,000 mls @ 100 mls/hr IV .Q10H [facility]AREN Last Admin: 08/31/17 04:05 Dose: 100 mls/hr Doxycycline Hyclate 100 mg/ (Sodium Chloride) 100 mls @ 100 mls/hr IVPB Q12 KAREN PRN Reason: Protocol Stop: 09/06/17 10:01 Last Admin: 08/31/17 10:29 Dose: 100 mls/hr Cefepime HCl (Maxipime 1gm) 1 gm in 100 mls @ 100 mls/hr IVPB Q8 KAREN PRN Reason: Protocol Stop: 09/05/17 14:01 Last Admin: 08/31/17 05:28 Dose: 100 mls/hr Methylprednisolone (Solu-Medrol) 40 mg IVP DAILY [facility] Last Admin: 08/31/17 10:29 Dose: 40 mg Ondansetron HCl (Zofran Inj) 4 mg IVP Q6H PRN PRN Reason: Nausea/Vomiting Pantoprazole Sodium (Protonix Inj) 40 mg IVP DAILY [facility] Last Admin: 08/31/17 10:29 Dose: 40 mg - Labs Labs: 08/31/17 05:30 08/31/17 05:30 - Constitutional Appears: No Acute Distress - Head Exam Head Exam: ATRAUMATIC, NORMAL INSPECTION, NORMOCEPHALIC - Eye Exam Eye Exam: Normal appearance, PERRL Pupil Exam: NORMAL ACCOMODATION, PERRL - ENT Exam ENT Exam: Mucous Membranes Moist - Neck Exam Neck Exam: Full ROM - Respiratory Exam Respiratory Exam: Clear to Ausculation Bilateral, NORMAL BREATHING PATTERN. absent: Rales, Rhonchi, Wheezes - Cardiovascular Exam Cardiovascular Exam: REGULAR RHYTHM, +S1, +S2. absent: Gallop, Rubs, Murmur - GI/Abdominal Exam GI & Abdominal Exam: Soft, Tenderness (epigastric), Normal Bowel Sounds - Extremities Exam Extremities Exam: absent: Calf Tenderness, Pedal Edema - Neurological Exam Neurological Exam: Alert, Awake, CN II-XII Intact, Normal Gait, Oriented x3 - Psychiatric Exam Psychiatric exam: Normal Affect, Normal Mood - Skin Skin Exam: Dry, Warm Assessment and Plan - Assessment and Plan (Free Text) Assessment: This is a 66yo female with past medical history of esophageal cancer s/p radiation chemotherapy (recent negative PET scan), CVA, gastric polyps, CAD, HTN and dysmotility disorder admitted for 1. Dysphagia (with esophageal dilation seen on CT) 2. Lung infiltrate (possibly secondary to aspiration) 3. Hypokalemia Plan: The patient will have an EGD tomorrow morning. Continue clear liquid diet and then NPO after midnight. Continue IV antibiotics for pneumonia. Will continue PPI and potassium supplementation. We will make further recommendations after EGD. Case seen, discussed and reviewed with Dr. Amezquita. Anushka Byrne PGY2 <Sabas Amezquita V - Last Filed: 08/31/17 23:27> Objective - Vital Signs/Intake and Output Vital Signs (last 24 hours): Temp Pulse Resp BP Pulse Ox 97.5 F L 94 H 20 155/102 H 98 08/31/17 17:38 08/31/17 17:38 08/31/17 17:38 08/31/17 17:38 08/31/17 17:38 - Medications Medications: Current Medications Acetaminophen (Tylenol 325mg Tab) 650 mg PO Q6H PRN PRN Reason: Fever >100.4 F Albuterol/Ipratropium (Duoneb 3 Mg/0.5 Mg (3 Ml) Ud) 3 ml IH Q2H PRN PRN Reason: Shortness of Breath Last Admin: 08/30/17 09:42 Dose: 3 ml Albuterol/Ipratropium (Duoneb 3 Mg/0.5 Mg (3 Ml) Ud) 3 ml IH [id number] KAREN Last Admin: 08/31/17 20:25 Dose: 3 ml Budesonide (Pulmicort Respules) 0.5 mg IH BIDRESP KAREN Last Admin: 08/31/17 20:28 Dose: 0.5 mg Dextrose/Sodium Chloride (Dextrose 5%/0.45% Ns 1000 Ml) 1,000 mls @ 100 mls/hr IV .Q10H [facility] Last Admin: 08/31/17 18:01 Dose: 100 mls/hr Doxycycline Hyclate 100 mg/ (Sodium Chloride) 100 mls @ 100 mls/hr IVPB Q12 KAREN PRN Reason: Protocol Stop: 09/06/17 10:01 Last Admin: 08/31/17 22:47 Dose: 100 mls/hr Cefepime HCl (Maxipime 1gm) 1 gm in 100 mls @ 100 mls/hr IVPB Q8 KAREN PRN Reason: Protocol Stop: 09/05/17 14:01 Last Admin: 08/31/17 21:31 Dose: 100 mls/hr Methylprednisolone (Solu-Medrol) 40 mg IVP DAILY [facility] Last Admin: 08/31/17 10:29 Dose: 40 mg Ondansetron HCl (Zofran Inj) 4 mg IVP Q6H PRN PRN Reason: Nausea/Vomiting Pantoprazole Sodium (Protonix Inj) 40 mg IVP DAILY [facility] Last Admin: 08/31/17 10:29 Dose: 40 mg Attending/Attestation - Attestation I have personally seen and examined this patient.: Yes I have fully participated in the care of the patient.: Yes I have reviewed all pertinent clinical information, including history, physical exam and plan: Yes Notes (Text): This is an addendum to GI progress report dictated by the Sap Functional Analyst the.The patient was seen and examined earlier. Medical records, lab studies, imagings were reviewed. Last 24 hours events reviewed. Agreed with the above treatment plan as outlined in Sap Functional Analyst 's notes the with the addition of the following tolerating clear liquid di Abdomen soft no tendernes Continue the antibiotics Schedule for an EGD on Thursday08/31/17 23:26
--- NOTE | 2017-08-31 12:55 | CP.PCM.PN ---
Subjective - Date & Time of Evaluation Date of Evaluation: 08/31/17 Time of Evaluation: 11:30 - Subjective Subjective: Resting comfortably in bed, no fevers, no SOB at rest. Objective - Vital Signs/Intake and Output Vital Signs (last 24 hours): Temp Pulse Resp BP Pulse Ox 98 F 94 H 20 150/90 100 08/31/17 08:33 08/31/17 08:33 08/30/17 18:00 08/31/17 08:33 08/31/17 08:33 - Medications Medications: Current Medications Acetaminophen (Tylenol 325mg Tab) 650 mg PO Q6H PRN PRN Reason: Fever >100.4 F Albuterol/Ipratropium (Duoneb 3 Mg/0.5 Mg (3 Ml) Ud) 3 ml IH Q2H PRN PRN Reason: Shortness of Breath Last Admin: 08/30/17 09:42 Dose: 3 ml Albuterol/Ipratropium (Duoneb 3 Mg/0.5 Mg (3 Ml) Ud) 3 ml IH [id number] KAREN Last Admin: 08/31/17 07:44 Dose: 3 ml Budesonide (Pulmicort Respules) 0.5 mg IH BIDRESP KAREN Last Admin: 08/31/17 07:44 Dose: 0.5 mg Dextrose/Sodium Chloride (Dextrose 5%/0.45% Ns 1000 Ml) 1,000 mls @ 100 mls/hr IV .Q10H [facility] Last Admin: 08/31/17 04:05 Dose: 100 mls/hr Doxycycline Hyclate 100 mg/ (Sodium Chloride) 100 mls @ 100 mls/hr IVPB Q12 KAREN PRN Reason: Protocol Stop: 09/06/17 10:01 Last Admin: 08/31/17 10:29 Dose: 100 mls/hr Cefepime HCl (Maxipime 1gm) 1 gm in 100 mls @ 100 mls/hr IVPB Q8 KAREN PRN Reason: Protocol Stop: 09/05/17 14:01 Last Admin: 08/31/17 05:28 Dose: 100 mls/hr Methylprednisolone (Solu-Medrol) 40 mg IVP DAILY [facility] Last Admin: 08/31/17 10:29 Dose: 40 mg Ondansetron HCl (Zofran Inj) 4 mg IVP Q6H PRN PRN Reason: Nausea/Vomiting Pantoprazole Sodium (Protonix Inj) 40 mg IVP DAILY [facility] Last Admin: 08/31/17 10:29 Dose: 40 mg - Constitutional Appears: Non-toxic, Chronically Ill - Head Exam Head Exam: NORMAL INSPECTION - Respiratory Exam Respiratory Exam: Decreased Breath Sounds - Cardiovascular Exam Cardiovascular Exam: +S1, +S2 - GI/Abdominal Exam GI & Abdominal Exam: Soft. absent: Tenderness Assessment and Plan - Assessment and Plan (Free Text) Plan: Assessment sepsis due to HCAP CAD CVA HTN vitamin D deficiency Plan continue Cefepime and Doxycycline day 2; reviewed CT chest; PCT is only 0.05 - if cultures are negative, will d/c cefepime by tomorrow and complete 4-7 days of doxycycline will continue to monitor clinically
--- NOTE | 2017-08-31 13:09 | PN ---
DATE: 08/31/2017 PULMONARY PROGRESS NOTE SUBJECTIVE: The patient is markedly improved. She has no respiratory distress at this time. There is an occasional cough. She is awake and alert, history of esophageal cancer status post radiation and chemotherapy, squamous cell carcinoma of the esophagus, myocardial infarction, cerebrovascular accident in the past. The patient is comfortable today in no acute distress, smiling. PHYSICAL EXAMINATION: GENERAL: She is doing well, comfortable, in no distress. VITAL SIGNS: Stable, afebrile. Temperature max 98.7, pulse 88, respiratory rate 16-18, blood pressure 140/90, O2 sat 96% on supplemental oxygen. HEENT: Normocephalic, atraumatic. Eyes: PERRLA. EOMs full. Conjunctivae pink. NECK: Supple. No JVD. No lymphadenopathy. No bruit. No jugular venous distention. LUNGS: Good air sounds. Minimal rhonchi and wheezes. No rales appreciated. ABDOMEN: Soft. Bowel sounds normoactive without mass, guarding, rebound, organomegaly. EXTREMITIES: Reveal no clubbing, cyanosis, or edema. NEUROLOGIC: Reveals no focal findings. CLINICAL IMPRESSION: 1. Status post respiratory insufficiency. 2. Status post acute bronchospasm. 3. Possible aspiration. 4. Esophageal cancer. PLAN: We need to follow closely. The patient will require Barium swallow to make sure there is no aspiration syndrome as we believe this is a possible cause of acute problems seen earlier. We would need to continue the bronchodilators and follow closely. Before the patient is discharged, a swallowing evaluation should be performed. Thank you for the opportunity to see this carmen patient. José Samuels MD
--- NOTE | 2017-08-31 16:01 | PN ---
DATE: 08/31/2017 SUBJECTIVE: The patient is a 66-year-old with history of esophageal cancer and also, history of achalasia cardia, has been having persistent cough. The patient states she recently had a PET scan done and was told it is okay, admitted for persistent cough to rule out aspiration pneumonia. PHYSICAL EXAMINATION: GENERAL: Today, she is awake, alert, oriented, communicative, does not look in any distress. VITAL SIGNS: Patient is afebrile, pulse 94, respirations 18, blood pressure 130/90. LUNGS: Bilateral soft crackle in the right lung base. HEART: S1 and S2 audible. ABDOMEN: Soft, nontender. No rebound. No guarding. NEUROLOGIC: She is awake, alert, oriented, and communicative. EXTREMITIES: Bilateral legs, no edema. LABORATORY DATA: WBC 10.7, hemoglobin 11, hematocrit 35.2, platelet 327. Chemistry: Sodium 137, potassium 3, chloride 100, CO2 27, BUN 8, creatinine 0.6. Blood sugar of 108. Blood cultures are negative. CT scan of the chest shows thickening of mid to lower esophagus with dilated air-filled esophagus with layering food debris and liquid. ASSESSMENT: 1. Persistent cough. 2. History of hypertension. 3. History of esophageal cancer, status post radiation and chemo . PLAN: Currently, the patient is on clear liquid diet. Continue her on IV fluids. She is on doxycycline, nebulizer treatment and the potassium has been supplemented. The patient is scheduled for endoscopy in the morning. Marla Paiz MD
[2017-09-01] MEDS: Albuterol-Ipratrop 3 mg / 0.5 (3 ml) UD IH SCH ×4 (01:52→20:13)
[2017-09-01] MEDS: Cefepime 1gm in NS 100ml 1 GM/100 ML BAG IVPB SCH ×3 (05:52→21:41)
[2017-09-01] MEDS: Dextrose 5%/0.45% NS 1,000 ML IV SCH (05:54)
[2017-09-01] MEDS: Budesonide 0.5 mg/2 ml Inhal Susp UD IH SCH ×2 (07:51→20:13)
[2017-09-01] MEDS: MethylPREDNISolone 40 mg Vial IVP SCH (09:50)
[2017-09-01 10:17] LABS: BASO # 0.02 K/mm3 (0.0-2.0); BASO % 0.1 % (0.0-3.0); EOS # 0.1 (0.0-0.7); EOS % 0.5 % (1.5-5.0); GRAN # 11.08 (1.4-6.5); GRAN % 76.9 % (50.0-68.0); HEMOGLOBIN 11.8 g/dL (12.0-16.0); LYMPH # 1.7 (1.2-3.4); LYMPH % 11.7 % (22.0-35.0); MEAN CELL VOLUME 83.8 fl (80.0-105.0); MEAN CORPUSCULAR HEMOGLOBIN 27.3 pg (25.0-35.0); MEAN CORPUSCULAR HGB CONC 32.6 g/dl (31.0-37.0); MEAN PLATELET VOLUME 9.7 fl (7.0-11.0); MONO # 1.6 (0.1-0.6); MONO % 10.8 % (1.0-6.0); RBC 4.32 10^6/uL (3.5-6.1); RED CELL DISTRIBUTION WIDTH 15.6 % (11.5-14.5); WHITE BLOOD COUNT 14.4 10^3/ul (4.5-11.0)
[2017-09-01 10:33] LABS: ALBUMIN 3.6 g/dL (3.0-4.8); ALT/SGPT 25 U/L (7-56); AST/SGOT 19 U/L (14-36); BLOOD UREA NITROGEN 5 mg/dL (7-21); CALCIUM 8.9 mg/dL (8.4-10.5); GFR AFRICAN-AMERICAN > 60; GFR NON-AFRICAN AMERICAN > 60
[2017-09-01] MEDS ORDERED: Potassium Chloride 20 mEq ER Tab PO STA (11:10)
[2017-09-01] MEDS ORDERED: Potassium Chl 30 mEq in D5-1/2 1,000 ML IV SCH (11:15)
[2017-09-01] MEDS ORDERED: Propofol 10 mg/ml Inj (20 ML) ONE (14:35)
--- NOTE | 2017-09-01 14:35 | PN ---
DATE: 09/01/2017 SUBJECTIVE: The patient is 66 years old, seen and examined, lying in bed, seems to be comfortable. Less cough, less congestion, waiting to get endoscopy done today, got delayed because of hypokalemia. OBJECTIVE: VITAL SIGNS: She is afebrile, pulse 102, respiration 21, and blood pressure 158/96. LUNGS: Bilateral fair airflow, occasional expiratory rhonchi. HEART: S1 and S2 audible. ABDOMEN: Soft, nontender. No rebound, no guarding. NEUROLOGICAL: She is awake, alert, oriented, and communicative. LABORATORY EXAMINATION: WBC is 14.4, hemoglobin 11.8, hematocrit 36.2, platelet of 339. Chemistry: Sodium 138, potassium 2.9, chloride 99, CO2 27, BUN 5, creatinine 0.6, blood sugar of 114. Blood culture, urine cultures are negative. ASSESSMENT: 1. History of esophageal cancer status post radiation and chemotherapy. 2. History of achalasia cardia. 3. Questionable aspiration pneumonia. 4. Malnutrition. 5. Chronic obstructive pulmonary disease. 6. Hypokalemia. PLAN: Currently patient is on cefepime. I will supplement potassium. Continue nebulizer treatment. Patient remains stable. Patient is scheduled for endoscopy and after that we will make disposition plan. Marla Paiz MD
--- NOTE | 2017-09-01 14:56 | CP.PCM.PN ---
Subjective - Date & Time of Evaluation Date of Evaluation: 09/01/17 Time of Evaluation: 11:50 - Subjective Subjective: Patient is feeling better and breathing better, not in distress. Objective - Vital Signs/Intake and Output Vital Signs (last 24 hours): Temp Pulse Resp BP Pulse Ox 97.5 F L 102 H 20 158/96 H 98 08/31/17 17:38 09/01/17 06:26 08/31/17 17:38 09/01/17 06:26 08/31/17 17:38 - Medications Medications: Current Medications Acetaminophen (Tylenol 325mg Tab) 650 mg PO Q6H PRN PRN Reason: Fever >100.4 F Albuterol/Ipratropium (Duoneb 3 Mg/0.5 Mg (3 Ml) Ud) 3 ml IH Q2H PRN PRN Reason: Shortness of Breath Last Admin: 08/30/17 09:42 Dose: 3 ml Albuterol/Ipratropium (Duoneb 3 Mg/0.5 Mg (3 Ml) Ud) 3 ml IH [id number] KAREN Last Admin: 09/01/17 01:52 Dose: 3 ml Budesonide (Pulmicort Respules) 0.5 mg IH BIDRESP KAREN Last Admin: 08/31/17 20:28 Dose: 0.5 mg Dextrose/Sodium Chloride (Dextrose 5%/0.45% Ns 1000 Ml) 1,000 mls @ 100 mls/hr IV .Q10H KAREN Last Admin: 09/01/17 05:54 Dose: 100 mls/hr Doxycycline Hyclate 100 mg/ (Sodium Chloride) 100 mls @ 100 mls/hr IVPB Q12 KAREN PRN Reason: Protocol Stop: 09/06/17 10:01 Last Admin: 08/31/17 22:47 Dose: 100 mls/hr Cefepime HCl (Maxipime 1gm) 1 gm in 100 mls @ 100 mls/hr IVPB Q8 KAREN PRN Reason: Protocol Stop: 09/05/17 14:01 Last Admin: 09/01/17 05:52 Dose: 100 mls/hr Methylprednisolone (Solu-Medrol) 40 mg IVP DAILY [facility] Last Admin: 08/31/17 10:29 Dose: 40 mg Ondansetron HCl (Zofran Inj) 4 mg IVP Q6H PRN PRN Reason: Nausea/Vomiting Pantoprazole Sodium (Protonix Inj) 40 mg IVP DAILY KAREN Last Admin: 08/31/17 10:29 Dose: 40 mg - Constitutional Appears: Chronically Ill - Head Exam Head Exam: NORMAL INSPECTION - ENT Exam ENT Exam: Mucous Membranes Moist - Neck Exam Neck Exam: absent: Meningismus - Respiratory Exam Respiratory Exam: Decreased Breath Sounds - Cardiovascular Exam Cardiovascular Exam: +S1, +S2 - GI/Abdominal Exam GI & Abdominal Exam: Soft. absent: Tenderness Assessment and Plan - Assessment and Plan (Free Text) Plan: Assessment sepsis due to HCAP esophageal CA CAD CVA HTN vitamin D deficiency Plan continue Cefepime and Doxycycline day 3 - complete 4-7 days of therapy; reviewed CT chest; PCT is only 0.05 will continue to monitor clinically follow up further GI plans
[2017-09-01] MEDS ORDERED: Sodium Chloride 0.9% 1,000 ML IV SCH (15:30)
[2017-09-02 00:35] VITALS: RESP 20
[2017-09-02] MEDS: Albuterol-Ipratrop 3 mg / 0.5 (3 ml) UD IH SCH ×4 (03:17→20:07)
[2017-09-02] MEDS: Cefepime 1gm in NS 100ml 1 GM/100 ML BAG IVPB SCH ×3 (05:22→21:13)
[2017-09-02 07:20] LABS: BLOOD UREA NITROGEN 5 mg/dL (7-21); CALCIUM 9.1 mg/dL (8.4-10.5); GFR AFRICAN-AMERICAN > 60; GFR NON-AFRICAN AMERICAN > 60
[2017-09-02] MEDS: Budesonide 0.5 mg/2 ml Inhal Susp UD IH SCH ×2 (07:27→20:07)
--- NOTE | 2017-09-02 08:23 | CP.PCM.PN ---
<Marly Byrne - Last Filed: 09/02/17 17:44> Subjective - Date & Time of Evaluation Date of Evaluation: 09/02/17 Time of Evaluation: 09:00 - Subjective Subjective: GI Progress Note for Anushka Macias PGY2 Patient was seen and examined at beside. As per nursing staff, there were no acute overnight events. Patient says she feels much better today. she denies abdominal pain, nausea/vomiting/diarrhea, fever/chills, chest pain or shortness or breath. Objective - Vital Signs/Intake and Output Vital Signs (last 24 hours): Temp Pulse Resp BP Pulse Ox 98.0 F 84 20 137/86 97 09/02/17 00:00 09/02/17 06:00 09/02/17 00:00 09/02/17 00:00 09/02/17 00:00 Intake and Output: 09/02/17 09/02/17 06:59 18:59 Intake Total 1920 120 Balance 1920 120 - Medications Medications: Current Medications Acetaminophen (Tylenol 325mg Tab) 650 mg PO Q6H PRN PRN Reason: Fever >100.4 F Albuterol/Ipratropium (Duoneb 3 Mg/0.5 Mg (3 Ml) Ud) 3 ml IH Q2H PRN PRN Reason: Shortness of Breath Last Admin: 08/30/17 09:42 Dose: 3 ml Albuterol/Ipratropium (Duoneb 3 Mg/0.5 Mg (3 Ml) Ud) 3 ml IH [id number] KAREN Last Admin: 09/02/17 07:27 Dose: 3 ml Budesonide (Pulmicort Respules) 0.5 mg IH BIDRESP KAREN Last Admin: 09/02/17 07:27 Dose: 0.5 mg Doxycycline Hyclate 100 mg/ (Sodium Chloride) 100 mls @ 100 mls/hr IVPB Q12 KAREN PRN Reason: Protocol Stop: 09/06/17 10:01 Last Admin: 09/01/17 21:49 Dose: 100 mls/hr Cefepime HCl (Maxipime 1gm) 1 gm in 100 mls @ 100 mls/hr IVPB Q8 KAREN PRN Reason: Protocol Stop: 09/05/17 14:01 Last Admin: 09/02/17 05:22 Dose: 100 mls/hr Potassium Chloride/Dextrose/Sod Cl (Potassium Chl 30 Meq In D5-1/2ns) 1,000 mls @ 100 mls/hr IV .Q10H [facility] Last Admin: 09/02/17 05:22 Dose: 100 mls/hr Methylprednisolone (Solu-Medrol) 40 mg IVP DAILY [facility] Last Admin: 09/01/17 09:50 Dose: 40 mg Ondansetron HCl (Zofran Inj) 4 mg IVP Q6H PRN PRN Reason: Nausea/Vomiting Pantoprazole Sodium (Protonix Inj) 40 mg IVP DAILY [facility] Last Admin: 09/01/17 09:50 Dose: 40 mg - Labs Labs: 09/01/17 10:00 09/02/17 06:05 - Constitutional Appears: No Acute Distress - Head Exam Head Exam: ATRAUMATIC, NORMAL INSPECTION, NORMOCEPHALIC - Eye Exam Eye Exam: Normal appearance Pupil Exam: NORMAL ACCOMODATION - ENT Exam ENT Exam: Mucous Membranes Moist - Neck Exam Neck Exam: Full ROM - Respiratory Exam Respiratory Exam: Clear to Ausculation Bilateral, NORMAL BREATHING PATTERN. absent: Rales, Rhonchi, Wheezes - Cardiovascular Exam Cardiovascular Exam: REGULAR RHYTHM, +S1, +S2. absent: Gallop, Rubs, Murmur - GI/Abdominal Exam GI & Abdominal Exam: Soft, Normal Bowel Sounds. absent: Rigid, Tenderness, Mass , Rebound - Extremities Exam Extremities Exam: Normal Inspection. absent: Calf Tenderness, Pedal Edema - Neurological Exam Neurological Exam: Alert, Awake, CN II-XII Intact, Normal Gait, Oriented x3 - Skin Skin Exam: Dry, Warm Assessment and Plan - Assessment and Plan (Free Text) Assessment: This is a 66yo female with past medical history of esophageal cancer s/p radiation chemotherapy (recent negative PET scan), CVA, gastric polyps, CAD, HTN and dysmotility disorder admitted for 1. Dysphagia (with esophageal dilation seen on CT) 2. Lung infiltrate (possibly secondary to aspiration) 3. Hx of esophageal cancer s/p chemotherapy 4. Hypokalemia (resolved) Plan: Will start patient on soft diet with 6 small meals per day to help prevent aspiration. EGD showed gastric polyp which was sent to pathology as well as achalasia. Will continue antibiotics. Also will refer patient to [facility] for evaluation for possible manometry. Continue PPI. Case seen, discussed and reviewed with Dr. Amezquita. Anushka Byrne PGY2 <Sabas Amezquita V - Last Filed: 09/03/17 06:26> Objective - Vital Signs/Intake and Output Vital Signs (last 24 hours): Temp Pulse Resp BP Pulse Ox 98.7 F 116 H 20 138/93 H 98 09/02/17 18:00 09/03/17 02:00 09/02/17 18:00 09/02/17 18:00 09/02/17 18:00 Intake and Output: 09/02/17 09/03/17 18:59 06:59 Intake Total 960 1020 Balance 960 1020 - Medications Medications: Current Medications Acetaminophen (Tylenol 325mg Tab) 650 mg PO Q6H PRN PRN Reason: Fever >100.4 F Albuterol/Ipratropium (Duoneb 3 Mg/0.5 Mg (3 Ml) Ud) 3 ml IH Q2H PRN PRN Reason: Shortness of Breath Last Admin: 08/30/17 09:42 Dose: 3 ml Albuterol/Ipratropium (Duoneb 3 Mg/0.5 Mg (3 Ml) Ud) 3 ml IH [id number] KAREN Last Admin: 09/03/17 03:10 Dose: Not Given Budesonide (Pulmicort Respules) 0.5 mg IH BIDRESP KAREN Last Admin: 09/02/17 20:07 Dose: 0.5 mg Doxycycline Hyclate 100 mg/ (Sodium Chloride) 100 mls @ 100 mls/hr IVPB Q12 KAREN PRN Reason: Protocol Stop: 09/06/17 10:01 Last Admin: 09/02/17 22:05 Dose: 100 mls/hr Cefepime HCl (Maxipime 1gm) 1 gm in 100 mls @ 100 mls/hr IVPB Q8 KAREN PRN Reason: Protocol Stop: 09/05/17 14:01 Last Admin: 09/03/17 05:32 Dose: 100 mls/hr Methylprednisolone (Solu-Medrol) 40 mg IVP BID KAREN Last Admin: 09/02/17 17:03 Dose: 40 mg Ondansetron HCl (Zofran Inj) 4 mg IVP Q6H PRN PRN Reason: Nausea/Vomiting Pantoprazole Sodium (Protonix Inj) 40 mg IVP DAILY [facility] Last Admin: 09/02/17 10:10 Dose: 40 mg - Labs Labs: 09/01/17 10:00 09/02/17 06:05 Attending/Attestation - Attestation I have personally seen and examined this patient.: Yes I have fully participated in the care of the patient.: Yes I have reviewed all pertinent clinical information, including history, physical exam and plan: Yes Notes (Text): This is an addendum to GI progress report dictated by the Ct Mri Technologist.The patient was seen and examined earlier. Medical records, lab studies, imagings were reviewed. Last 24 hours events reviewed. Agreed with the above treatment plan as outlined in Ct Mri Technologist 's notes the with the addition of the following 09/03/17 06:25
--- NOTE | 2017-09-02 08:51 | PN ---
DATE: 09/02/2017 PULMONARY NOTE SUBJECTIVE: The patient appears comfortable this morning. She is not short of breath at rest. OBJECTIVE: VITAL SIGNS: Temperature is 98, pulse 84, respirations 18/20, blood pressure 137/86. Oxygen saturation on room air is 97%. HEENT: Normocephalic, atraumatic. No JVD. CARDIOVASCULAR: Systolic ejection murmur at the lower left sternal border. No S3 gallop. LUNGS: Decreased breath sounds at the bases. Very minimal rhonchi. No wheezing. EXTREMITIES: Mild edema. No cyanosis, no clubbing. Calves are nontender to palpation. GASTROINTESTINAL: Abdomen is soft, nontender and nondistended. Bowel sounds are positive. SKIN: No acute rash. NEUROLOGIC: Exam limited at the present time. IMPRESSION: 1. Pneumonia - probable aspiration. 2. Mild bronchospasm. 3. History of esophageal cancer. 4. Markedly dilated esophagus. 5. Mild anemia. PLAN The patient appears comfortable this morning. She is not short of breath at rest. She does state to feeling much better overall. On physical exam, there is no significant bronchospasm noted. In addition, there is no significant alveolar-arterial gradient. Oxygen saturation on room air is 97-98%. I will continue with the current nebulizer treatments and low-dose intravenous steroids for now. I would also continue with the antibiotic coverage as per Infectious Disease. Inputs are noted. The aspiration pneumonia is most likely due to an esophageal process. Inputs by GI are also noted. Clinical status of the patient is certainly improved - compared to the initial presentation. However, her future status/prognosis does remain very guarded. I will discuss the above with the attending physician. Benjamín Carrion MD MTDCecelia
--- NOTE | 2017-09-02 09:04 | PN ---
DATE: 09/01/2017 PULMONARY PROGRESS NOTE SUBJECTIVE: The patient was seen and examined at the bedside. She appears comfortable with no respiratory distress. VITAL SIGNS: Her temperature is 97.6, pulse 100, respirations 20, pulse oximetry is 96 on room air, blood pressure is 150/90. LABORATORY DATA: I reviewed today's blood work. Her potassium is reduced to 2.9, being corrected at the present time. Sodium 138. WBC is 14.4, hemoglobin of 11.8. Ben Bautista MD
[2017-09-02] MEDS: MethylPREDNISolone 40 mg Vial IVP SCH (10:10)
--- NOTE | 2017-09-02 15:01 | PN ---
DATE: 09/02/2017 SUBJECTIVE: The patient is 66 years old, seen and examined, has endoscopy done yesterday. There is no sign of esophageal CA, however, she has achalasia and as per Dr. Arizmendi, she needs to be referred to Dr. Michael Forbse who does plan overall endoscopic myomectomy. The patient will be started on pureed food and see her response. She is still coughing, has chest congestion. PHYSICAL EXAMINATION: VITAL SIGNS: She is afebrile, pulse 89, respirations 20, blood pressure 143/86. LUNGS: Bilateral fair airflow. Few rhonchi or crackle. HEART: S1, S2 audible. ABDOMEN: Soft, nontender. No rebound, no guarding. NEUROLOGICAL: The patient is awake, alert, oriented, communicative. LABORATORY EXAM: Sodium 140, potassium 3.8, chloride 100, CO2 29, BUN 5, creatinine 0.7, blood sugar of 87. Blood cultures are negative. Urine cultures are negative. ASSESSMENT: 1. History of esophageal cancer, status post radiation therapy and chemotherapy. 2. Achalasia cardia. 3. Malnutrition. 4. Status post hypokalemia. 5. Gastroesophageal reflux. PLAN: I am going to discontinue IV fluids. She is motivated to eat. Currently, she is on prednisone. I will increase it to b.i.d. and if she tolerates food and her bronchospasm is better, will be discharged in a.m. and will be referred to [facility]. Marla Paiz MD
--- NOTE | 2017-09-02 16:55 | CP.PCM.PN ---
Subjective - Date & Time of Evaluation Date of Evaluation: 09/02/17 Time of Evaluation: 11:40 - Subjective Subjective: Feeling better, no fevers, not in distress. Objective - Vital Signs/Intake and Output Vital Signs (last 24 hours): Temp Pulse Resp BP Pulse Ox 97.9 F 89 20 143/86 95 09/02/17 06:00 09/02/17 06:00 09/02/17 06:00 09/02/17 06:00 09/02/17 06:00 Intake and Output: 09/02/17 09/02/17 06:59 18:59 Intake Total 1920 120 Balance 1920 120 - Medications Medications: Current Medications Acetaminophen (Tylenol 325mg Tab) 650 mg PO Q6H PRN PRN Reason: Fever >100.4 F Albuterol/Ipratropium (Duoneb 3 Mg/0.5 Mg (3 Ml) Ud) 3 ml IH Q2H PRN PRN Reason: Shortness of Breath Last Admin: 08/30/17 09:42 Dose: 3 ml Albuterol/Ipratropium (Duoneb 3 Mg/0.5 Mg (3 Ml) Ud) 3 ml IH [id number] KAREN Last Admin: 09/02/17 07:27 Dose: 3 ml Budesonide (Pulmicort Respules) 0.5 mg IH BIDRESP KAREN Last Admin: 09/02/17 07:27 Dose: 0.5 mg Doxycycline Hyclate 100 mg/ (Sodium Chloride) 100 mls @ 100 mls/hr IVPB Q12 KAREN PRN Reason: Protocol Stop: 09/06/17 10:01 Last Admin: 09/02/17 10:10 Dose: 100 mls/hr Cefepime HCl (Maxipime 1gm) 1 gm in 100 mls @ 100 mls/hr IVPB Q8 KAREN PRN Reason: Protocol Stop: 09/05/17 14:01 Last Admin: 09/02/17 05:22 Dose: 100 mls/hr Potassium Chloride/Dextrose/Sod Cl (Potassium Chl 30 Meq In D5-1/2ns) 1,000 mls @ 100 mls/hr IV .Q10H KAREN Last Admin: 09/02/17 05:22 Dose: 100 mls/hr Methylprednisolone (Solu-Medrol) 40 mg IVP DAILY [facility] Last Admin: 09/02/17 10:10 Dose: 40 mg Ondansetron HCl (Zofran Inj) 4 mg IVP Q6H PRN PRN Reason: Nausea/Vomiting Pantoprazole Sodium (Protonix Inj) 40 mg IVP DAILY [facility]EN Last Admin: 09/02/17 10:10 Dose: 40 mg - Labs Labs: 09/01/17 10:00 09/02/17 06:05 - Constitutional Appears: Non-toxic, Chronically Ill - Head Exam Head Exam: NORMAL INSPECTION - Respiratory Exam Respiratory Exam: Decreased Breath Sounds - Cardiovascular Exam Cardiovascular Exam: +S1, +S2 - GI/Abdominal Exam GI & Abdominal Exam: Soft. absent: Tenderness Assessment and Plan - Assessment and Plan (Free Text) Plan: Assessment sepsis due to HCAP, c linically improving esophageal CA CAD CVA HTN vitamin D deficiency Plan continue Cefepime and Doxycycline day 4 - complete 4-7 days of therapy; reviewed CT chest; PCT is only 0.05 will continue to monitor clinically follow up further GI plans
[2017-09-02] MEDS ORDERED: MethylPREDNISolone 40 mg Vial IVP SCH (18:00)
[2017-09-03] MEDS: Albuterol-Ipratrop 3 mg / 0.5 (3 ml) UD IH SCH ×3 (03:10→13:31)
[2017-09-03] MEDS: Cefepime 1gm in NS 100ml 1 GM/100 ML BAG IVPB SCH (05:32)
[2017-09-03 07:25] LABS: BLOOD UREA NITROGEN 9 mg/dL (7-21); CALCIUM 9.2 mg/dL (8.4-10.5); GFR AFRICAN-AMERICAN > 60; GFR NON-AFRICAN AMERICAN > 60
[2017-09-03 07:47] VITALS: BP 150/82; TEMP 98.1; O2SAT 97
[2017-09-03] MEDS: Budesonide 0.5 mg/2 ml Inhal Susp UD IH SCH (07:53)
--- NOTE | 2017-09-03 09:11 | PN ---
DATE: 09/03/2017 PULMONARY NOTE SUBJECTIVE: The patient appears very comfortable this morning. She is not short of breath at rest. PHYSICAL EXAMINATION: VITAL SIGNS: Last temperature recorded is 98.7, pulse this morning approximately 90, respiratory rate 18, blood pressure 138/93. Oxygen saturation on room air is 98%. HEENT: Normocephalic, atraumatic. No JVD. CARDIOVASCULAR: Systolic ejection murmur at the lower left sternal border. No S3 gallop. LUNGS: Improved breath sounds at the bases. Very minimal/less rhonchi. No wheezing. EXTREMITIES: Mild edema. No cyanosis, no clubbing. Calves are nontender to palpation. GASTROINTESTINAL: Abdomen is soft, nontender, and nondistended. Bowel sounds are positive. SKIN: No acute rash. NEUROLOGIC: Limited at the present time. IMPRESSION: 1. Pneumonia - probable aspiration. 2. Mild bronchospasm--resolving. 3. History of esophageal cancer. 4. Markedly dilated esophagus. 5. Mild anemia. PLAN: The patient appears very comfortable this morning. She is not short of breath at rest. She does state to feeling much, much better overall. On physical exam, there is no significant bronchospasm noted. In addition, the oxygen saturation on room air is now 98%. I will continue with the current nebulizer treatments and decrease the intravenous steroids this morning. I will also continue with the aspiration precautions. I would continue with the antibiotic coverage as per Infectious Disease. There are no temperatures noted. Input by ID is noted. Clinical status of the patient has significantly improved overall. I would like to see the patient out of bed more often. I will discuss the above with the attending physician. Benjamín Carrion MD [facility]
[2017-09-03] MEDS ORDERED: MethylPREDNISolone 40 mg Vial IVP SCH (10:00)
--- NOTE | 2017-09-03 11:18 | CP.PCM.PN ---
Subjective - Date & Time of Evaluation Date of Evaluation: 09/03/17 Time of Evaluation: 08:00 - Subjective Subjective: GI Progress Note for Anushka Macias PGY2 Patient was seen and examined at beside. As per nursing staff, there were no acute overnight events. Patient feels well and has been tolerating diet. She denies chest pain, shortness of breath, abdominal pain, nausea/vomiting/diarrhea , fever or chills. Objective - Vital Signs/Intake and Output Vital Signs (last 24 hours): Temp Pulse Resp BP Pulse Ox 98.1 F 99 H 20 150/82 97 09/03/17 06:00 09/03/17 06:00 09/03/17 06:00 09/03/17 06:00 09/03/17 06:00 Intake and Output: 09/03/17 09/03/17 06:59 18:59 Intake Total 1020 Balance 1020 - Medications Medications: Current Medications Acetaminophen (Tylenol 325mg Tab) 650 mg PO Q6H PRN PRN Reason: Fever >100.4 F Albuterol/Ipratropium (Duoneb 3 Mg/0.5 Mg (3 Ml) Ud) 3 ml IH Q2H PRN PRN Reason: Shortness of Breath Last Admin: 08/30/17 09:42 Dose: 3 ml Albuterol/Ipratropium (Duoneb 3 Mg/0.5 Mg (3 Ml) Ud) 3 ml IH [id number] KAREN Last Admin: 09/03/17 07:53 Dose: 3 ml Budesonide (Pulmicort Respules) 0.5 mg IH BIDRESP KAREN Last Admin: 09/03/17 07:53 Dose: 0.5 mg Doxycycline Hyclate 100 mg/ (Sodium Chloride) 100 mls @ 100 mls/hr IVPB Q12 KAREN PRN Reason: Protocol Stop: 09/06/17 10:01 Last Admin: 09/03/17 09:43 Dose: 100 mls/hr Cefepime HCl (Maxipime 1gm) 1 gm in 100 mls @ 100 mls/hr IVPB Q8 KAREN PRN Reason: Protocol Stop: 09/05/17 14:01 Last Admin: 09/03/17 05:32 Dose: 100 mls/hr Methylprednisolone (Solu-Medrol) 30 mg IVP Q12 KAREN Last Admin: 09/03/17 09:43 Dose: 30 mg Ondansetron HCl (Zofran Inj) 4 mg IVP Q6H PRN PRN Reason: Nausea/Vomiting Pantoprazole Sodium (Protonix Inj) 40 mg IVP DAILY [facility] Last Admin: 09/03/17 09:42 Dose: 40 mg - Labs Labs: 09/01/17 10:00 09/03/17 06:35 - Constitutional Appears: No Acute Distress - Head Exam Head Exam: ATRAUMATIC, NORMAL INSPECTION, NORMOCEPHALIC - Eye Exam Eye Exam: Normal appearance Pupil Exam: NORMAL ACCOMODATION - ENT Exam ENT Exam: Mucous Membranes Moist - Respiratory Exam Respiratory Exam: Clear to Ausculation Bilateral, NORMAL BREATHING PATTERN. absent: Rales, Rhonchi, Wheezes, Respiratory Distress - Cardiovascular Exam Cardiovascular Exam: REGULAR RHYTHM, +S1, +S2. absent: Gallop, Rubs, Murmur - GI/Abdominal Exam GI & Abdominal Exam: Soft, Normal Bowel Sounds. absent: Tenderness, Mass, Rebound - Neurological Exam Neurological Exam: Alert, Awake, CN II-XII Intact, Oriented x3 - Skin Skin Exam: Dry, Normal Color Assessment and Plan - Assessment and Plan (Free Text) Assessment: This is a 66yo female with past medical history of esophageal cancer s/p radiation chemotherapy (recent negative PET scan), CVA, gastric polyps, CAD, HTN and dysmotility disorder admitted for 1. Dysphagia (with esophageal dilation seen on CT) s/p EGD that showed achalasia 2. Lung infiltrate (possibly secondary to aspiration) 3. Hx of esophageal cancer s/p chemotherapy Plan: Recommend soft diet at home. Preferably small meals to prevent aspiration. Will follow up as outpatient. Continue PPI. Patient will be referred to [facility] for evaluation for manometry. Case seen, discussed and reviewed with Dr. Amezquita. Anushka Byrne PGY2
[2017-09-03 11:19] VITALS: PULSE 89
[2017-09-03] MEDS ORDERED: Morphine 4 mg/ml ISec ONE (12:06)
[2017-09-03] MEDS ORDERED: Eptifibatide 20 mg/10mL Inj IVP ONE (12:07)
--- NOTE | 2017-09-04 12:13 | DS ---
HISTORY OF PRESENT ILLNESS: Patient is 66 years old, seen and examined, doing well. Still has scanty cough. No nausea or vomiting. No diarrhea. PHYSICAL EXAMINATION: VITAL SIGNS: She is afebrile. Pulse 89, respirations 20, blood pressure . LUNGS: Bilateral good air flow. No rhonchi or crackle. HEART: S1 and S2 audible. ABDOMEN: Soft and nontender. No rebound. No guarding. NEUROLOGIC: Patient is awake, alert, communicative, ambulatory. LABORATORY DATA: Chemistry: Sodium 138, potassium 4.1, chloride 99, CO2 of 29, BUN 9, creatinine 0.6, blood sugar of 111. Procalcitonin 0.05. Urine and blood cultures are negative. ASSESSMENT AND PLAN: 1. Probably, low-grade aspiration pneumonia and cough acutely because of that. 2. History of esophageal carcinoma, status post radiofrequency ablation followed by chemotherapy. 3. Achalasia cardia. 4. Hypertension. 5. Gastroesophageal reflux disease. PLAN: Patient is being discharged home today. She is advised to eat a puree diet. She was given prescription of doxycycline 100 twice a day for five more days. She will be on Vantin 100 b.i.d. for five days and she was given prednisone 20 b.i.d. for 3 days and then, daily for five days. She will follow up with the GI doctor in [facility] for peroral endoscopic myotomy. Patient will be discharged . Marla Paiz MD
== END 2017-09-03 13:40 | disposition home health service (06) | DRG 871 ==
LOC: ED 10:41 → ERH 13:16 → 3RSO 15:07 → OBSVTOIN 08-31 12:09
PROVIDERS: ADMIT Internal Medicine; ATTEND Internal Medicine
PROC: 0DB58ZX Excision of Esophagus, Via Natural or Artificial Opening Endoscopic, Diagnostic (ICD-10-PCS; 2017-09-01)
PROC: 0DB68ZX Excision of Stomach, Via Natural or Artificial Opening Endoscopic, Diagnostic (ICD-10-PCS; principal; 2017-09-01 11:45)
DX: A41.9 Sepsis, unspecified organism (principal); J69.0 Pneumonitis due to inhalation of food and vomit; E46 Unspecified protein-calorie malnutrition; D64.9 Anemia, unspecified; E53.9 Vitamin B deficiency, unspecified; E55.9 Vitamin D deficiency, unspecified; E87.6 Hypokalemia; I10 Essential (primary) hypertension; I25.2 Old myocardial infarction; I25.10 Atherosclerotic heart disease of native coronary artery without angina pectoris; J44.9 Chronic obstructive pulmonary disease, unspecified; K20.9 Esophagitis, unspecified; K31.7 Polyp of stomach and duodenum; J98.01 Acute bronchospasm; K21.9 Gastro-esophageal reflux disease without esophagitis; K22.0 Achalasia of cardia; K22.2 Esophageal obstruction; K22.8 Other specified diseases of esophagus; Y95 Nosocomial condition; Z85.01 Personal history of malignant neoplasm of esophagus; Z86.73 Personal history of transient ischemic attack (TIA), and cerebral infarction without residual deficits; Z92.21 Personal history of antineoplastic chemotherapy; Z92.3 Personal history of irradiation; Z87.19 Personal history of other diseases of the digestive system; R73.9 Hyperglycemia, unspecified